=== PATIENT | female | born 1985 | race Caucasian/White ===

== ENCOUNTER 2019-09-02 07:34 | Outpatient (CLI) | payer OTHER ==
[2019-09-02 08:06] LABS: BASOPHILS % (AUTO) 0.7 % (0.0-2.0); EOSINOPHILS # (AUTO) 0.1 K/uL (0-0.4); HEMATOCRIT 39.1 % (36-48); LYMPHOCYTES # (AUTO) 2.3 K/uL (2.5-16.5); LYMPHOCYTES % (AUTO) 32.5 % (20.5-51.1); MEAN CORPUSCULAR HEMOGLOBIN 31 pg (27-31); MEAN CORPUSCULAR HGB CONC 33 g/dL (33-37); MONOCYTES # (AUTO) 0.4 K/uL (0.8-1.0); MONOCYTES % (AUTO) 5.2 % (1.7-9.3); NEUTROPHILS # (AUTO) 4.3 K/uL (1.8-7.7); NEUTROPHILS % (AUTO) 60.6 % (42.2-75.2); PLATELET COUNT (AUTO) 334 K/uL (140-450); RED CELL DISTRIBUTION WIDTH 14.7 % (11.6-13.7)
[2019-09-02 08:15] LABS: APPEARANCE,URINE CLEAR (CLEAR); BILIRUBIN,URINE NEGATIVE (NEGATIVE); BLOOD, URINE NEGATIVE (NEGATIVE); COLOR,URINE YELLOW (YELLOW); LEUKOCYTE ESTERASE ,URINE NEGATIVE (NEGATIVE); NITRITE, URINE NEGATIVE (NEGATIVE); PH,URINE 6.5 (5.0-9.0); UGLUCOSE NEGATIVE (NEGATIVE)
[2019-09-02 08:28] LABS: ALBUMIN 3.5 g/dL (3.4-5.0); ANION GAP 16.1 (8-16); CARBON DIOXIDE 25.1 mmol/L (21-32); CREATININE 0.7 mg/dL (0.6-1.3); FREE T4 (FREE THYROXINE) 0.85 ng/dL (0.76-1.46); POTASSIUM 4.2 mmol/L (3.5-5.1); THYROID STIMULATING HORMONE 1.54 uIU/mL (0.34-3.74); TOTAL BILIRUBIN 0.4 mg/dL (0.0-1.0)
== END 2019-09-02 19:29 | disposition home or self-care (01) ==
LOC: MLB 07:34
DX: Z13.29 Encounter for screening for other suspected endocrine disorder (principal); Z13.228 Encounter for screening for other metabolic disorders; Z13.0 Encounter for screening for diseases of the blood and blood-forming organs and certain disorders involving the immune mechanism; Z13.21 Encounter for screening for nutritional disorder; Z13.220 Encounter for screening for lipoid disorders
CPT/HCPCS: 36415; 80053; 81003; 82306; 83036; 84439; 84443; 85025

== ENCOUNTER 2022-02-12 14:44 | Emergency (ER) | payer OTHER ==
[~2022-02-12] VITALS: Ht 162.6 cm; Wt 78.6 kg
[2022-02-12 15:19] VITALS: BP 128/76
== END 2022-02-12 15:59 | disposition home or self-care (01) ==
LOC: MED 14:44
DX: S60.221A Contusion of right hand, initial encounter (principal); X58.XXXA Exposure to other specified factors, initial encounter; Y92.89 Other specified places as the place of occurrence of the external cause; Y93.89 Activity, other specified; Y99.8 Other external cause status
CPT/HCPCS: 73130; 99283